=== PATIENT | male | born 1985 | race Caucasian/White ===

== ENCOUNTER 2021-10-05 22:28 | Emergency (ER) | payer OTHER ==
[2021-10-05] MEDS ORDERED: Bupivacaine 0.5% 10 ML VIAL ONE (22:37)
== END 2021-10-05 23:00 | disposition home or self-care (01) ==
LOC: ERS 22:28
DX: S01.01XA Laceration without foreign body of scalp, initial encounter (principal); I10 Essential (primary) hypertension; J45.909 Unspecified asthma, uncomplicated; F17.210 Nicotine dependence, cigarettes, uncomplicated; Z79.899 Other long term (current) drug therapy; W01.0XXA Fall on same level from slipping, tripping and stumbling without subsequent striking against object, initial encounter
CPT/HCPCS: 12002; J3490